=== PATIENT | male | born 1940 | race Caucasian/White ===

== ENCOUNTER 2018-06-16 19:45 | Outpatient (REF) | payer MEDICARE, SELFPAY ==
[2018-06-16 20:09] LABS: HCT 44.5 % (40.0-50.0); HGB 15.2 g/dL (13.5-17.5); Mean Corp. HGB Concentration 34.2 g/dL (32.0-36.0); Mean Corpuscular Hemoglobin 29.6 pg (27.0-33.0); Mean Corpuscular Volume 86.6 fL (80-95); Platelet Count 182 x1000/uL (130-400); RBC 5.14 m/cumm (4.50-6.00); RBC Distribution Width 14.7 % (11.8-14.1); White Blood Cell Count 5.92 k/cumm (4.4-10.8)
== END 2018-06-16 20:05 ==
LOC: NCHCN 19:45
PROVIDERS: PCP Internal Medicine; Visit Provider Nurse Practitioner Family
DX: R05 Cough (principal)
CPT/HCPCS: 85027

== ENCOUNTER 2018-11-09 09:00 | Outpatient (REF) | payer MEDICARE, SELFPAY ==
[2018-11-09 20:04] LABS: Anion Gap 9.3 mmol/L (3-11); BUN 22 mg/dL (7-18); CO2 25.7 mmol/L (21.0-32.0); CREATININE 1.09 mg/dL (0.70-1.30); Calcium 9.4 mg/dL (8.5-10.1); Chloride 107 mmol/L (98-107); Glucose 124 mg/dL (70-100); Potassium 4.5 mmol/L (3.5-5.1); Sodium 142 mmol/L (136-145)
[2018-11-13 11:18] LABS: PSA, Screening 2.1 ng/ml (0-6.5)
== END 2018-11-09 09:20 ==
LOC: NCHCN 09:00
PROVIDERS: PCP Physician Assistant Medical; Visit Provider Physician Assistant Medical
DX: I10 Essential (primary) hypertension (principal); Z12.5 Encounter for screening for malignant neoplasm of prostate
CPT/HCPCS: 80048; 84153

== ENCOUNTER 2019-01-22 10:15 | Outpatient (REF) | payer MEDICARE, SELFPAY ==
[2019-01-22 19:05] LABS: HCT 45.5 % (40.0-50.0); HGB 15.4 g/dL (13.5-17.5); Mean Corp. HGB Concentration 33.8 g/dL (32.0-36.0); Mean Corpuscular Hemoglobin 29.7 pg (27.0-33.0); Mean Corpuscular Volume 87.7 fL (80-95); Mean Platelet Volume 10.7 fL (8.0-11.0); Platelet Count 204 x1000/uL (130-400); RBC 5.19 m/cumm (4.50-6.00); RBC Distribution Width 14.6 % (11.8-14.1)
[2019-01-22 19:32] LABS: ALT 29 U/L (16-63); AST 19 U/L (15-37); Albumin 4.2 g/dL (3.4-5.0); Alkaline Phosphatase 110 U/L (46-116); BUN 15 mg/dL (7-18); Bilirubin, Total 0.8 mg/dL (0.2-1.0); CREATININE 1.14 mg/dL (0.70-1.30); Calcium 9.1 mg/dL (8.5-10.1); Chloride 103 mmol/L (98-107); Glucose 99 mg/dL (70-100); Potassium 4.6 mmol/L (3.5-5.1); Sodium 140 mmol/L (136-145); Total Protein 6.9 g/dL (6.4-8.2)
[2019-01-22 20:28] LABS: Amylase 49 U/L (25-115); Lipase 81 U/L (73-393)
== END 2019-01-22 10:35 ==
LOC: NCHCN 10:15
PROVIDERS: PCP Physician Assistant Medical; Visit Provider Nurse Practitioner Family
DX: R10.84 Generalized abdominal pain (principal)
CPT/HCPCS: 80053; 83690; 85027; 82150

== ENCOUNTER 2019-05-14 08:40 | Outpatient (REF) | payer MEDICARE, SELFPAY ==
[2019-05-14 20:16] LABS: ALT 27 U/L (16-63); AST 15 U/L (15-37); Calculated LDL 111 mg/dL; Cholesterol 173 mg/dL (<200); HDL Cholesterol 44 mg/dL (40-60); Triglyceride 90 mg/dL (<150)
[2019-05-16 10:16] LABS: PSA, Screening 2.4 ng/mL (0.0-6.5)
== END 2019-05-14 09:00 ==
LOC: NCHCN 08:40
PROVIDERS: PCP Physician Assistant Medical; Visit Provider Nurse Practitioner Family
DX: E78.5 Hyperlipidemia, unspecified (principal); N40.0 Benign prostatic hyperplasia without lower urinary tract symptoms; Z12.5 Encounter for screening for malignant neoplasm of prostate
CPT/HCPCS: 80061; 84153; 84450; 84460

== ENCOUNTER 2019-10-11 12:46 | Outpatient (REF) | payer MEDICARE, SELFPAY ==
[2019-10-11 20:28] LABS: CREATININE 1.11 mg/dL (0.70-1.30)
== END 2019-10-11 13:06 ==
LOC: NCHCN 12:46
PROVIDERS: PCP Physician Assistant Medical; Visit Provider Internal Medicine
DX: I10 Essential (primary) hypertension (principal)
CPT/HCPCS: 82565

== ENCOUNTER 2020-03-26 10:22 | Outpatient (REF) | payer MEDICARE, SELFPAY ==
[2020-03-26 20:39] LABS: Anion Gap 5.7 mmol/L (3-11); BUN 15 mg/dL (7-18); CO2 27.3 mmol/L (21.0-32.0); CREATININE 1.07 mg/dL (0.70-1.30); Calcium 8.5 mg/dL (8.5-10.1); Chloride 106 mmol/L (98-107); Glucose 104 mg/dL (74-106); Sodium 139 mmol/L (136-145)
== END 2020-03-26 10:42 ==
LOC: NCHCN 10:22
PROVIDERS: PCP Physician Assistant Medical; Visit Provider Nurse Practitioner Family
DX: I10 Essential (primary) hypertension (principal)
CPT/HCPCS: 80048

== ENCOUNTER 2020-05-12 12:59 | Outpatient (REF) | payer MEDICARE, SELFPAY ==
[2020-05-13 21:46] LABS: COVID-19 RT-PCR Result NEGATIVE (Negative)
== END 2020-05-12 13:19 ==
LOC: NCHCN 12:59
PROVIDERS: PCP Physician Assistant Medical; Visit Provider Internal Medicine
DX: Z20.828 Contact with and (suspected) exposure to other viral communicable diseases (principal)
CPT/HCPCS: U0003

== ENCOUNTER 2020-09-16 21:23 | Outpatient (REF) | payer MEDICARE, SELFPAY ==
[2020-09-16 17:52] LABS: ALT 26 U/L (16-63); AST 15 U/L (15-37); Albumin 3.9 g/dL (3.4-5.0); Alkaline Phosphatase 94 U/L (46-116); Anion Gap 9.7 mmol/L (3-11); BUN 18 mg/dL (7-18); Bilirubin, Total 0.8 mg/dL (0.2-1.0); CO2 26.3 mmol/L (21.0-32.0); CREATININE 1.1 mg/dL (0.70-1.30); Calcium 8.7 mg/dL (8.5-10.1); Calculated LDL 101 mg/dL (<100); Chloride 106 mmol/L (98-107); Cholesterol 171 mg/dL (<200); Glucose 136 mg/dL (74-106); HDL Cholesterol 58 mg/dL (40-60); Potassium 3.8 mmol/L (3.5-5.1); Sodium 142 mmol/L (136-145); Total Protein 6.4 g/dL (6.4-8.2); Triglyceride 64 mg/dL (<150)
== END 2020-09-16 21:24 | disposition home or self-care (01) ==
LOC: NCHCN 21:23
PROVIDERS: PCP Physician Assistant Medical; Visit Provider Nurse Practitioner Family
DX: I10 Essential (primary) hypertension (principal); E78.5 Hyperlipidemia, unspecified
CPT/HCPCS: 80053; 80061

== ENCOUNTER 2020-10-14 16:31 | Outpatient (REF) | payer MEDICARE, SELFPAY ==
[2020-10-16 14:04] LABS: COVID-19 RT-PCR UVMMC Result Negative (Negative)
== END 2020-10-14 16:32 | disposition home or self-care (01) ==
LOC: NCHCN 16:31
PROVIDERS: PCP Physician Assistant Medical; Visit Provider Physician Assistant
DX: Z20.822 Contact with and (suspected) exposure to COVID-19 (principal); J06.9 Acute upper respiratory infection, unspecified
CPT/HCPCS: U0003; U0005

== ENCOUNTER 2020-10-31 09:45 | Outpatient (REF) | payer MEDICARE, SELFPAY ==
--- OUTSIDE RECORDS SUMMARY | 2020-10-31 09:50 | XMS_ITS ---
:1940 Author Care Team Providers Name Role Phone CASSANDRA SAUCEDO MD Primary Care Provider [phone] EBER ROSARIO MD General Surgeon [phone] Allergies Code Code System Name Reaction Severity Status Onset 2670 RxNorm Codeine Nausea ? Active ? Medications Name Status Start Date Stop Date ? ? ciprofloxacin 500 mg tablet Completed ? 12/2018 codeine 10 mg-guaifenesin 100 mg/5 mL oral liquid Active ? Not available Take 10 mL every 4 hours by oral route as needed. Golytely 236 gram-22.74 gram-6.74 gram-5.86 gram oral soluti on Completed 07/10/2015 05/16/2017 1 (one) For Solution For Solution: See comments hydrocodone 5 mg-acetaminophen Completed ? 1 325 mg tablet lisinopril 20 mg tablet Active ? Not avai lable loratadine 10 mg capsule Completed ? 020 Take 1 capsule every day by oral route. lorazepam 1 mg tablet Completed 04/28/2015 05/16/2017 1 (one) Tablet Tablet: as needed meclizine 12.5 mg tablet Completed ? 019 Take 2 tablets 3 times a day by oral route as needed. meloxicam 15 mg tablet Active ? Not avail able metronidazole 500 mg tablet Completed ? 12/2018 Multi-Graham Active ? Not available 1 tablet in the am omeprazole 20 mg capsule,delayed Completed ? 02/05/2020 release omeprazole 40 mg capsule,delayed Active ? Not available release ondansetron 4 mg disintegrating tablet Active ? Not available Place 1 tablet every 6 hours by oral route as needed. oxycodone 5 mg tablet Completed ? 02/07/2019 Percocet 5 mg-325 mg tablet Completed 07/18/201403/02 1-2 Tablet Tablet: every 4-6 hours as needed Proctosol HC 2.5 % rectal cream with applicator Active ? Not available APPLY TO THE AFFECTED AREA(S) BY TOPICAL ROUTE 2 TIMES PER DAY PRN Proscar 5 mg tablet Completed 04/02/2015 05/16/2017 1 (one) Tablet Tablet: daily simvastatin 20 mg tablet Active ? Not kristine ilable sucralfate 1 gram tablet Active ? Not kristine ilable sucralfate 100 mg/mL oral suspension Completed ? 07/24/2020 Take 10 mL 4 times a day by oral route before meals for 30 days . tamsulosin 0.4 mg capsule Completed 04/02/20152017 1 (one) Tablet(s) Tablet(s): at bedtime Tessalon Perles 100 mg capsule Active ? N ot available Take 2 capsules 3 times a day by oral route as needed. Valium 5 mg tablet Completed 02/05/2014 07/25/2014 1-2 Tablet: one hour prior to MRI Problems Name Status Onset Date Source ? Benign Paroxysmal Positional Vertigo Active 02/01/2019 ? Gastroesophageal Reflux Disease Active 02/01/2019 ? Benign Prostatic Hyperplasia Active 02/01/2019 ? Osteoarthritis Active 02/01/2019 ? Gastritis Active 02/26/2019 ? Hyperlipidemia Active ? History Hypertensive Disorder Active ? History Nodule of Lung Active ? ? Cholangitis Active ? History Blood in Urine Active ? History Idiopathic Osteoarthritis Active ? Histor y Shoulder Joint Pain Active ? History Abdominal Pain Active ? History Closed Fracture of Upper End of Fibula Active ? History Closed Fracture of Distal Fibula Active ? History Pain in Right Knee Active ? History Hemorrhage of Rectum and Anus Active ? Hi story Closed Fracture of Distal Left Fibula Active ? History Closed Fracture of Upper End of Left Active ? History Fibula Lower Urinary Tract Symptoms Due to Active ? History Benign Prostatic Hypertrophy Procedure by Method Unknown ? History Impingement Syndrome of Left Shoulder Active ? History Region Procedures Date Name Performed by ? 02/13/2019 EGD/Endoscopy Information not avai lable Notes: Hiatal hernia, esophagitis, ga stric polyp, gastritis. 07/01/09 WNL 09/13/2018 Carpal Tunnel Surgery Information not av ailable Notes: L CTR 05/20/2017 Open Reduction of Fracture with Internal Fixation Information not available Notes: left fibula 08/14/2015 Colonoscopy Information not avai lable Notes: sigmoid diverticulosis, 07/01/09 min diverticular changes 08/06/2014 Cholecystectomy Information not avai lable 07/18/2014 Arthroscopy of Shoulder Information not available Notes: left ? Arthroscopy of Knee Information not avai lable Notes: bilateral ? Orthopedic Surgery Information not avai lable Notes: right shoulder, 2006; CTR, 200 8 Results Lab Results Date Name Specimen Result Interpretation Description Value Range Status Address ? 10/16/2020 CBC W/ BLD ? Wbc 9.1 10*3/uL 5.0-10.0 Final [place] Auto Diff 10*3/uL [facility] L ab (Internal) : [address] ? ? BLD ? Rbc 5.38 10*6/uL 4.60-6.00 Final N orth 10*6/uL [facility] L ab (Internal) : [address] ? ? BLD ? Hgb 16.2 g/dL 14.0-18.0 Final Nort h g/dL [facility] L ab (Internal) : [address] ? ? BLD ? Hct 47.9 % 41.0-51.0 Final [facility] L ab (Internal) : [address] ? ? BLD ? Mcv 89.0 fL 80.0-96.0 Final [facility] L ab (Internal) : [address] ? ? BLD ? Mch 30.1 pg 26.0-32.0 Final [place] pg [facility] L ab (Internal) : [address] ? ? BLD ? Mchc 33.8 g/dL 31.0-35.0 Final Nort h g/dL [facility] L ab (Internal) : [address] ? ? BLD ? Rdw 13.9 % 11.5-14.5 Final [facility] L ab (Internal) : [address] ? ? BLD ? Plt 148 10*3/uL 130-450 Final Nort h 10*3/uL [facility] L ab (Internal) : [address] 10/16/2020 CMP, Serum S High g/r 124 mg/dL 74-106 Final [place] or Plasma mg/dL [facility] L ab (Internal) : [address] ? ? S ? Bun 13 mg/dL 9-20 Final [facility] mg/dL [facility] : [address] ? ? S ? Crea 0.80 mg/dL 0.66-1.25 Final [place] [facility] mg/dL [facility] (Internal) : [address] ? ? S ? Ca 9.4 mg/dL 8.4-10.2 Final [place] mg/dL [facility] (Internal) : [address] ? ? S ? Na 138 mmol/L 137-145 Final [place] mmol/L [facility] L ab (Internal) : [address] ? ? S ? K 3.7 mmol/L 3.5-5.1 Final [place] mmol/L [facility] L ab (Internal) : [address] ? ? S ? Cl 104 mmol/L 98-107 Final [place] mmol/L [facility] L ab (Internal) : [address] ? ? S ? Tco2 24.0 mmol/L 22.0-30.0 Final No rth mmol/L [facility] L ab (Internal) : [address] ? ? S ? Tp 6.7 g/dL 6.3-8.2 Final [place] g/dL [facility] (Internal) : [address] ? ? S ? Alb 4.2 g/dL 3.5-5.0 Final [place] g/dL [facility] L ab (Internal) : [address] ? ? S ? Tbil 0.9 mg/dL 0.2-1.3 Final [place] mg/dL [facility] L ab (Internal) : [address] ? ? S ? Alp 103 U/L 38-126 Final [place] U/L [facility] L ab (Internal) : [address] ? ? S Low Alt 20 U/L 21-72 U/L Final [place] (Sgpt) [facility] L ab (Internal) : [address] ? ? S ? Ast 25 U/L 17-59 U/L Final [place] (Sgot) [facility] L ab (Internal) : [address] 10/16/2020 Differenti BLD High Polys 83 % 40-75 % Final N orth al, Country Manual, Hospital Lab Blood (Internal) : [address] ? ? BLD ? Bands 0 % 0-5 % Final [facility] L ab (Internal) : [address] ? ? BLD Low Lymphs 8 % 20-50 % Final [facility] L ab (Internal) : [address] ? ? BLD ? Wy[place] 7 % 2-10 % Final [facility] L ab (Internal) : [address] ? ? BLD ? Eos 1 % 0-6 % Final [facility] L ab (Internal) : [address] ? ? BLD ? Baso 1 % 0-1 % Final [facility] L ab (Internal) : [address] ? ? BLD ? Atyp 0 % ? Final [facility] L ab (Internal) : [address] ? ? BLD ? Plts, adequate adequate [facility] [place] [facility] [address] ? ? BLD ? RBC normal normal Final [place] Morpholog Replaced by [facility] L ab (Internal) : [address] 10/16/2020 Neutrophil BLD ? Anc-manu 7.52 10*3/uL ? Final [place] Count, al [facility] Lab (Anc), (Internal) : Blood [address] 10/16/2020 Nlr-manual BLD High Nlr - 10.38 0.00-3.20 Final [facility] Hospital L ab (Internal) : [address] 10/16/2020 Respirator FLUID ? Final microbiology ? Fin al [place] y Virus results [facility] L ab (Internal) : [address] 02/13/2019 Urease, TISS - Final microbiology ? Final [place] Qualitativ results Count ry e, Tissue Hospita l Lab (Internal) : [address] 02/13/2019 Pathology TISS - Report results below ? Fi nal [facility] L ab (Internal) : [address] 05/20/2017 Venipunctu BLD ? Venpn* ? ? Final N orth re [facility] L ab (Internal) : [address] 05/20/2017 RBC BLD ? Aniso occasional ? Final No rth Morphology Countr y , Blood Hospital Lab (Internal) : [address] 05/20/2017 CBC W/ BLD ? Wbc 7.9 10*3/uL 5.0-10.0 Final [place] Auto Diff 10*3/uL [facility] Hospital L ab (Internal) : [address] ? ? BLD ? Rbc 5.52 10*6/uL 4.60-6.00 Final N orth 10*6/uL [facility] L ab (Internal) : [address] ? ? BLD ? Hgb 15.8 g/dL 14.0-18.0 Final Nort h g/dL [facility] L ab (Internal) : [address] ? ? BLD ? Hct 47.4 % 41.0-51.0 Final [facility] L ab (Internal) : [address] ? ? BLD ? Mcv 85.9 fL 80.0-96.0 Final [facility] L ab (Internal) : [address] ? ? BLD ? Mch 28.6 pg 26.0-32.0 Final [facility] L ab (Internal) : [address] ? ? BLD ? Mchc 33.3 g/dL 31.0-35.0 Final Nort h g/dL [facility] L ab (Internal) : [address] ? ? BLD High Rdw 15.1 % 11.5-14.5 Final [facility] L ab (Internal) : [address] ? ? BLD ? Plt 196 10*3/uL 130-450 Final Nort h 10*3/uL [facility] L ab (Internal) : [address] ? ? BLD ? Anc 5.25 10*3/uL ? Final Nort h [facility] L ab (Internal) : [address] ? ? BLD ? Neutro 66.5 % 40.0-75.0 Final [facility] L ab (Internal) : [address] ? ? BLD Low Lymph 18.3 % 20.0-50.0 Final [facility] L ab (Internal) : [address] ? ? BLD ? [place] 9.6 % 2.0-10.0 Final [facility] Hospital L ab (Internal) : [address] ? ? BLD ? Eos 4.6 % 1.0-6.0 % Final [facility] L ab (Internal) : [address] ? ? BLD ? Baso 0.6 % 0.0-1.0 % Final [facility] L ab (Internal) : [address] ? ? BLD ? Ig 0.4 % 0.0-0.9 % Final [facility] L ab (Internal) : [address] 08/16/2016 Venipunctu BLD ? Venpn* ? ? Final N orth re [facility] L ab (Internal) : [address] 08/16/2016 BMP, Serum PLASMA High g/r 108 mg/dL 74-106 Final [place] or Plasma mg/dL [facility] (Internal) : [address] ? ? PLASMA ? Bun 14 mg/dL 9-20 Final [place] mg/dL [facility] L ab (Internal) : [address] ? ? PLASMA ? Crea 1.10 mg/dL 0.66-1.25 Final [place] [facility] mg/dL [facility] (Internal) : [address] ? ? PLASMA ? Ca 8.8 mg/dL 8.4-10.2 Final [place] mg/dL [facility] L ab (Internal) : [address] ? ? PLASMA ? Na 141 mmol/L 137-145 Final [place] mmol/L [facility] L ab (Internal) : [address] ? ? PLASMA ? K 4.1 mmol/L 3.5-5.1 Final [place] mmol/L [facility] L ab (Internal) : [address] ? ? PLASMA ? Cl 106 mmol/L 98-107 Final [place] mmol/L [facility] L ab (Internal) : [address] ? ? PLASMA ? Tco2 24.0 mmol/L 22.0-30.0 Final No rth mmol/L [facility] (Internal) : [address] 08/16/2016 CBC W/ BLD ? Wbc 5.9 10*3/uL 5.0-10.0 Final [place] Auto Diff 10*3/uL [facility] L ab (Internal) : [address] ? ? BLD Low Rbc 4.24 10*6/uL 4.60-6.00 Final N orth 10*6/uL [facility] (Internal) : [address] ? ? BLD Low Hgb 12.7 g/dL 14.0-18.0 Final Nort h g/dL [facility] (Internal) : [address] ? ? BLD Low Hct 37.0 % 41.0-51.0 Final North % [facility] L ab (Internal) : [address] ? ? BLD ? Mcv 87.3 fL 80.0-96.0 Final [facility] L ab (Internal) : [address] ? ? BLD ? Mch 30.0 pg 26.0-32.0 Final [place] pg [facility] L ab (Internal) : [address] ? ? BLD ? Mchc 34.3 g/dL 31.0-35.0 Final Nort h g/dL [facility] (Internal) : [address] ? ? BLD ? Rdw 14.1 % 11.5-14.5 Final North % [facility] L ab (Internal) : [address] ? ? BLD ? Plt 145 10*3/uL 130-450 Final Nort h 10*3/uL [facility] (Internal) : [address] ? ? BLD ? Anc 3.63 10*3/uL ? Final Nort [facility] (Internal) : [address] ? ? BLD ? Neutro 61.7 % 40.0-75.0 Final North [facility] L ab (Internal) : [address] ? ? BLD Low Lymph 16.7 % 20.0-50.0 Final [facility] % [facility] (Internal[facility] : [address] ? ? BLD High [place] 11.9 % 2.0-10.0 Final [facility] L ab (Internal) : [address] ? ? BLD High Eos 9.0 % 1.0-6.0 % Final [facility] L ab (Internal) : [address] ? ? BLD ? Baso 0.5 % 0.0-1.0 % Final [facility] L ab (Internal) : [address] ? ? BLD ? Ig 0.2 % 0.0-0.9 % Final [facility] L ab (Internal) : [address] 08/15/2016 Venipunctu BLD ? Venpn* ? ? Final N [facility] re [facility] L ab (Internal) : [address] 08/15/2016 CBC W/ BLD ? Wbc 8.9 10*3/uL 5.0-10.0 Final [place] Auto Diff 10*3/uL [facility] L ab (Internal) : [address] ? ? BLD Low Rbc 4.11 10*6/uL 4.60-6.00 Final N orth 10*6/uL [facility] L ab (Internal) : [address] ? ? BLD Low Hgb 12.3 g/dL 14.0-18.0 Final Nort h g/dL [facility] L ab (Internal) : [address] ? ? BLD Low Hct 36.0 % 41.0-51.0 Final [facility] Hospital L ab (Internal) : [address] ? ? BLD ? Mcv 87.6 fL 80.0-96.0 Final [facility] L ab (Internal) : [address] ? ? BLD ? Mch 29.9 pg 26.0-32.0 Final [facility] L ab (Internal) : [address] ? ? BLD ? Mchc 34.2 g/dL 31.0-35.0 Final Nort h g/dL [facility] L ab (Internal) : [address] ? ? BLD ? Rdw 14.2 % 11.5-14.5 Final [facility] Hospital L ab (Internal) : [address] ? ? BLD ? Plt 149 10*3/uL 130-450 Final Nort h 10*3/uL [facility] L ab (Internal) : [address] ? ? BLD ? Anc 6.76 10*3/uL ? Final Nort h [facility] L ab (Internal) : [address] ? ? BLD High Neutro 76.2 % 40.0-75.0 Final [facility] L ab (Internal) : [address] ? ? BLD Low Lymph 10.3 % 20.0-50.0 Final [facility] Hospital L ab (Internal) : [address] ? ? BLD ? [place] 9.0 % 2.0-10.0 Final [facility] Hospital L ab (Internal) : [address] ? ? BLD ? Eos 3.7 % 1.0-6.0 % Final [facility] L ab (Internal) : [address] ? ? BLD ? Baso 0.5 % 0.0-1.0 % Final [facility] L ab (Internal) : [address] ? ? BLD ? Ig 0.3 % 0.0-0.9 % Final [facility] L ab (Internal) : [address] 08/15/2016 BMP, Serum PLASMA High g/r 107 mg/dL 74-106 Final North or Plasma mg/dL [facility] L ab (Internal) : [address] ? ? PLASMA ? Bun 14 mg/dL 9-20 Final [place] mg/dL [facility] L ab (Internal) : [address] ? ? PLASMA ? Crea 1.00 mg/dL 0.66-1.25 Final Nor th mg/dL [facility] L ab (Internal) : [address] ? ? PLASMA Low Ca 8.2 mg/dL 8.4-10.2 Final [place] mg/dL [facility] L ab (Internal) : [address] ? ? PLASMA Low Na 136 mmol/L 137-145 Final [place] mmol/L [facility] L ab (Internal) : [address] ? ? PLASMA ? K 3.8 mmol/L 3.5-5.1 Final [place] mmol/L [facility] L ab (Internal) : [address] ? ? PLASMA ? Cl 106 mmol/L 98-107 Final [place] mmol/L [facility] L ab (Internal) : [address] ? ? PLASMA Low Tco2 21.0 mmol/L 22.0-30.0 Final No rth mmol/L [facility] L ab (Internal) : [address] 08/14/2016 Venipunctu BLD ? Venpn* ? ? Final N orth re [facility] L ab (Internal) : [address] 08/14/2016 Lactic S ? La 0.8 mmol/L 0.7-2.1 Final N orth Acid, mmol/L [facility] Blood Hospital L ab (Internal) : [address] 08/14/2016 Culture, BLD ? Final microbiology ? Final [place] Blood results [facility] L ab (Internal) : [address] 08/14/2016 Culture, UR ? Final microbiology ? Final [place] Urine results [facility] L ab (Internal) : [address] 08/14/2016 sensitivit MISC ? Sens* ? ? Final No rth ies[I] [facility] L ab (Internal) : [address] 08/14/2016 Urinalysis UR ABNORMA UA-WBC 50-100 [hpf] 0-3 [hpf ] Final [facility]Internal[facility] : [address] ? ? UR ABNORMA UA-RBC 50-100 [hpf] 0-2 [hpf] Final [facility] L ab (Internal) : [address] ? ? UR ABNORMA UA-bacte many [hpf] none seen Final [facility] sunday [hpf] [facility] ab (Internal) : [address] ? ? UR ? UA-epith rare [hpf] none seen Final [place] elial [hpf] [facility] ab (Internal) : [address] ? ? UR ABNORMA UA-mucus rare [hpf] none seen Final [facility] [hpf] [facility] ab (Internal) : [address] 08/14/2016 Urinalysis UR ? UA-color pale yellow pale F inal [place] , yellow [facility] Dipstick, Hospita l Lab Reflex (Internal) : Micro [address] ? ? UR ABNORMA UA-appea hazy clear Final [facility] ab (Internal) : [address] ? ? UR ? UA-spec 1.020 1.003-1.0 Final [place] Grav 35 [facility] ab (Internal) : [address] ? ? UR ? UA-pH 5.0 [pH] 4.6-8.0 Final [place] [pH] [facility] ab (Internal) : [address] ? ? UR ABNORMA UA-leuk moderate negative Final [facility] ab (Internal) : [address] ? ? UR ? UA-nitri negative negative Final [facility] ab (Internal) : [address] ? ? UR ABNORMA UA-prot trace negative Final [facility] ab (Internal) : [address] ? ? UR ? UA-gluc negative negative Final [facility] ab (Internal) : [address] ? ? UR ? UA-keton negative negative Final [facility] ab (Internal) : [address] ? ? UR ? UA-urobi normal normal Final [facility] ab (Internal) : [address] ? ? UR ? UA-bili negative negative Final [facility] ab (Internal) : [address] ? ? UR ABNORMA UA-blood large negative Final [facility] ab (Internal) : [address] 08/14/2016 Culture, BLD ? Final microbiology ? Final [place] Blood results [facility] ab (Internal) : [address] 08/14/2016 Neutrophil BLD ? Anc-manu 10.12 10*3/uL ? Final [place] Count, al [facility] Lab (Anc), (Internal) : Blood [address] 08/14/2016 Differenti BLD High Polys 86 % 40-75 % Final N orth al, [facility] Manual, Hospital Lab Blood (Internal) : [address] ? ? BLD ? Bands 2 % 0-5 % Final [facility] L ab (Internal) : [address] ? ? BLD Low Lymphs 5 % 20-50 % Final [facility] L ab (Internal) : [address] ? ? BLD ? Wy[place] 6 % 2-10 % Final [facility] L ab (Internal) : [address] ? ? BLD ? Eos 1 % 0-6 % Final [facility] L ab (Internal) : [address] ? ? BLD ? Baso 0 % 0-1 % Final [facility] L ab (Internal) : [address] ? ? BLD ? Atyp 0 % ? Final [facility] L ab (Internal) : [address] ? ? BLD ? Plts, adequate adequate Final [facility] L ab (Internal) : [address] ? ? BLD ? RBC normal normal Final [place] Morpholog Replaced by [facility] L ab (Internal) : [address] 08/14/2016 BMP, Serum S High g/r 113 mg/dL 74-106 Final [place] or Plasma mg/dL [facility] Hospital L ab (Internal) : [address] ? ? S ? Bun 20 mg/dL 9-20 Final [place] mg/dL [facility] Hospital L ab (Internal) : [address] ? ? S ? Crea 1.00 mg/dL 0.66-1.25 Final Nor th mg/dL [facility] Hospital L ab (Internal) : [address] ? ? S ? Ca 9.6 mg/dL 8.4-10.2 Final [place] mg/dL [facility] Hospital L ab (Internal) : [address] ? ? S ? Na 137 mmol/L 137-145 Final [place] mmol/L [facility] Hospital L ab (Internal) : [address] ? ? S ? K 4.2 mmol/L 3.5-5.1 Final [place] mmol/L [facility] Hospital L ab (Internal) : [address] ? ? S ? Cl 102 mmol/L 98-107 Final [place] mmol/L [facility] L ab (Internal) : [address] ? ? S ? Tco2 22.0 mmol/L 22.0-30.0 Final No rth mmol/L [facility] Hospital L ab (Internal) : [address] 08/14/2016 CBC W/ BLD High Wbc 11.5 10*3/uL 5.0-10.0 Final [place] Auto Diff 10*3/uL [facility] L ab (Internal) : [address] ? ? BLD ? Rbc 4.89 10*6/uL 4.60-6.00 Final N orth 10*6/uL [facility] Hospital L ab (Internal) : [address] ? ? BLD ? Hgb 14.6 g/dL 14.0-18.0 Final Nort h g/dL [facility] Hospital L ab (Internal) : [address] ? ? BLD ? Hct 42.2 % 41.0-51.0 Final [facility] L ab (Internal) : [address] ? ? BLD ? Mcv 86.3 fL 80.0-96.0 Final [facility] Hospital L ab (Internal) : [address] ? ? BLD ? Mch 29.9 pg 26.0-32.0 Final [facility] L ab (Internal) : [address] ? ? BLD ? Mchc 34.6 g/dL 31.0-35.0 Final Nort h g/dL [facility] Hospital L ab (Internal) : [address] [address] ? ? BLD ? Rdw 14.0 % 11.5-14.5 Final [facility] ab (Internal) : [address] ? ? BLD ? Plt 172 10*3/uL 130-450 Final Nort h 10*3/uL [facility] (Internal) : [address] 08/14/2016 Influenza NASAL ? Final microbiology ? [place] [facility] [place] (A+B) Ag, results Countr y Qual, Hospital L ab Rapid, (Internal) : Nose [address] 07/14/2016 Prothrombi BLD ? Pt 10.4 S 9.1-11.7 Final [place] n Time S [facility] (Internal) : [address] ? ? BLD ? Inr 1.0 ? Final [facility] (Internal) : [address] 07/14/2016 CMP, Serum S High g/r 113 mg/dL 74-106 Final [place] or Plasma mg/dL [facility] : [address] ? ? S ? Bun 18 mg/dL 9-20 Final [place] mg/dL [facility] : [address] ? ? S ? Crea 1.20 mg/dL 0.66-1.25 Final [place] [facility] mg/dL [facility] ([facility]) : [address] ? ? S ? Ca 8.9 mg/dL 8.4-10.2 Final [place] mg/dL [facility] ([facility]) : [address] ? ? S ? Na 139 mmol/L 137-145 Final [place] mmol/L [facility] ([facility]) : [address] ? ? S ? K 3.6 mmol/L 3.5-5.1 Final [place] mmol/L [facility] ([facility]) : [address] ? ? S ? Cl 104 mmol/L 98-107 Final [place] mmol/L [facility] ([facility]) : [address] ? ? S ? Tco2 24.0 mmol/L 22.0-30.0 Final No rth mmol/L [facility] (Internal) : [address] ? ? S ? Tp 7.4 g/dL 6.3-8.2 Final [place] g/dL [facility] ([facility]) : [address] ? ? S ? Alb 4.5 g/dL 3.5-5.0 Final [place] g/dL [facility] (Internal) : [address] ? ? S ? Tbil 0.5 mg/dL 0.2-1.3 Final [place] mg/dL [facility] (Internal) : [address] ? ? S ? Alp 120 U/L 38-126 Final [place] U/L [facility] (Internal) : [address] ? ? S ? Alt 38 U/L 21-72 U/L Final [place] (pt) [facility] (Internal) : [address] ? ? S ? Ast 36 U/L 17-59 U/L Final [place] (Sgot) [facility] (Internal) : [address] t 07/14/2016 CBC W/ BLD ? Wbc 6.3 10*3/uL 5.0-10.0 Final [place] Auto Diff 10*3/uL [facility] (Internal) : [address] ? ? BLD ? Rbc 5.39 10*6/uL 4.60-6.00 Final N orth 10*6/uL [facility] (Internal) : [address] ? ? BLD ? Hgb 16.7 g/dL 14.0-18.0 Final Nort h g/dL [facility] L ab (Internal) : [address] ? ? BLD ? Hct 47.2 % 41.0-51.0 Final [facility] L ab (Internal) : [address] ? ? BLD ? Mcv 87.6 fL 80.0-96.0 Final [facility] L [facility] (Internal) : [address] ? ? BLD ? Mch 31.0 pg 26.0-32.0 Final [place] pg [facility] (Internal) : [address] ? ? BLD High Mchc 35.4 g/dL 31.0-35.0 Final Nort h g/dL [facility] (Internal) : [address] ? ? BLD High Rdw 14.6 % 11.5-14.5 Final [facility] ab (Internal) : [address] [place] ? ? BLD ? Plt 207 10*3/uL 130-450 Final Nort h 10*3/uL [facility] L ab (Internal) : [address], [place] ? ? BLD ? Anc 3.29 10*3/uL ? Final Nort h [facility] ab (Internal) : [address] ? ? BLD ? Neutro 52.7 % 40.0-75.0 Final [facility] ab (Internal) : [address], [place] ? ? BLD ? Lymph 27.0 % 20.0-50.0 Final [facility] L ab (Internal) : [address], [place] ? ? BLD ? [place] 9.4 % 2.0-10.0 Final [facility] ab (Internal) : [address] [place] ? ? BLD High Eos 9.9 % 1.0-6.0 % Final [facility] ab (Internal) : [address] [place] ? ? BLD ? Baso 0.8 % 0.0-1.0 % Final [facility] ab (Internal) : [address], [place] ? ? BLD ? Ig 0.2 % 0.0-0.9 % Final [facility] ab (Internal) : [address] 07/14/2016 Urinalysis UR ? UA-WBC 0-3 [hpf] 0-3 [hpf] Fi [facility] Lab c (Internal) : [address] [place] ? ? UR ABNORMA UA-RBC >100 [hpf] 0-2 [hpf] Final N orth L [facility] L ab (Internal) : [address] ? ? UR ? UA-bacte rare [hpf] none seen Final [place] sunday [hpf] [facility] ab (Internal) : [address] [place] ? ? UR ? UA-epith rare [hpf] none seen Final [place] elial [hpf] [facility] ab (Internal) : [address] ? ? UR ? UA-mucus none seen none seen Final N orth [hpf] [hpf] [facility] L ab (Internal) : [address] 07/14/2016 Urinalysis UR ABNORMA UA-color red pale Final [place] , L yellow [facility] Dipstick, Hospita l Lab Reflex (Internal) : Micro [address] ? ? UR ABNORMA UA-appea cloudy clear Final [place] L r [facility] L ab (Internal) : [address] Past Encounters 07/24/2020 Diastasis Recti; Gastro-esophageal Reflu x Disease with Esophagitis Eber Rosario MD: [address] [place] [phone], Ph. 05/07/2020 Antelmo Munguia MD: [address] [place] [phone], Ph. 08/29/2019 DARBY SnowdenC: [address] [place] [phone], Ph. 06/06/2019 Antelmo Munguia MD: [address] [place] [phone], Ph. 05/30/2019 DARBY SnowdenC: [address] [place] [phone], Ph. 05/23/2019 Dione Cooper PA-C: [address] [place] [phone], Ph. Social History Tobacco Smoking Status Former Smoker Vaccine List None recorded. Plan of Care Reminders Provider Appointments None ? ? recorded. Lab None ? ? recorded. Referral None ? ? recorded. Procedures None ? ? recorded. Surgeries None ? ? recorded. Imaging None ? ? recorded. Vitals 07/24/2020 01:45PM Office 15 Height Weight BMI Blood Pressure 182.88 cm 94.03 kg 28.1 kg/m2 128/76 mm[Hg] 05/07/2020 09:30AM Consult 30 Height Weight BMI 182.88 cm 96.03 kg 28.7 kg/m2 08/29/2019 01:45PM Any 30 Height Weight BMI Blood Pressure 182.88 cm 97.52 kg 29.2 kg/m2 128/74 mm[Hg] 05/30/2019 09:15AM Injection 15 Height Weight BMI Blood Pressure 182.88 cm 05/23/2019 09:15AM Injection 15 Height Weight BMI Blood Pressure 182.88 cm 02/07/2019 08:30AM Office 15 Height Weight BMI Blood Pressure 182.88 cm 97.07 kg 29 kg/m2 136/82 mm[Hg] 08/30/2018 02:00PM Follow Up 15 Weight Blood Pressure 99.84 kg 138/88 mm[Hg] 06/27/2017 Height Weight Blood Pressure 182.88 cm 104.19 kg 162/92 mm[Hg] 05/16/2017 Height Weight Blood Pressure 182.88 cm 95.25 kg 152/78 mm[Hg] 08/08/2015 Height Weight Blood Pressure 182.88 cm 93.89 kg 146/84 mm[Hg] 04/02/2015 Weight 93.89 kg 03/19/2015 Weight Blood Pressure 93.89 kg 146/70 mm[Hg] 12/20/2014 Height Weight Blood Pressure 182.88 cm 90.72 kg 137/72 mm[Hg] 09/27/2014 Height Weight Blood Pressure 182.88 cm 90.72 kg 138/78 mm[Hg] 09/17/2014 Height Weight Blood Pressure 182.88 cm 92.99 kg 136/82 mm[Hg] 08/20/2014 Height Weight Blood Pressure 182.88 cm 88.45 kg 152/82 mm[Hg] 02/05/2014 Height Weight Blood Pressure 182.88 cm 88.45 kg 146/88 mm[Hg] 01/15/2014 Height Weight Blood Pressure 182.88 cm 88.45 kg 118/78 mm[Hg] 09/18/2013 Height Weight Blood Pressure 182.88 cm 88.45 kg 110/80 mm[Hg] 09/11/2013 Height Weight Blood Pressure 182.88 cm 88.45 kg 106/80 mm[Hg] 09/04/2013 Height Weight Blood Pressure 182.88 cm 88.45 kg 120/84 mm[Hg] 01/24/2013 Height Weight Blood Pressure 182.88 cm 88.45 kg 120/84 mm[Hg] 01/17/2013 Height Weight Blood Pressure 182.88 cm 88.45 kg 124/84 mm[Hg] 12/22/2012 Height Weight Blood Pressure 182.88 cm 88.45 kg 120/78 mm[Hg] 06/28/2012 Height Weight Blood Pressure 182.88 cm 88.45 kg 124/67 mm[Hg] 06/21/2012 Height Weight Blood Pressure 182.88 cm 88.45 kg 122/68 mm[Hg] 06/14/2012 Height Weight Blood Pressure 182.88 cm 88.45 kg 124/64 mm[Hg] 03/22/2012 Height Weight Blood Pressure 182.88 cm 88.45 kg 136/67 mm[Hg] 03/15/2012 Height Weight Blood Pressure 182.88 cm 88.45 kg 138/64 mm[Hg] 03/08/2012 Height Weight Blood Pressure 182.88 cm 88.45 kg 121/69 mm[Hg] 01/21/2012 Height Weight 182.88 cm 88.45 kg 05/06/2011 Height Weight Blood Pressure 182.88 cm 90.72 kg 110/68 mm[Hg] 10/06/2010 Height Weight 182.88 cm 90.72 kg 09/08/2010 Height Weight 182.88 cm 90.72 kg 07/09/2010 Height Weight 182.88 cm 90.72 kg 04/01/2010 Height Weight 182.88 cm 90.72 kg 03/24/2009 Height Weight 182.88 cm 90.72 kg 07/23/2008 Height Weight 182.88 cm 90.72 kg 07/16/2008 Height Weight 182.88 cm 90.72 kg 07/09/2008 Height Weight 182.88 cm 90.72 kg 04/19/2008 Height Weight 182.88 cm 90.72 kg
[2020-11-04 17:37] LABS: PSA, Diagnostic 2.7 ng/mL (0.0-6.5)
== END 2020-10-31 09:46 | disposition home or self-care (01) ==
LOC: NCHCN 09:45
PROVIDERS: PCP Physician Assistant Medical; Visit Provider Physician Assistant
DX: R35.0 Frequency of micturition (principal)
CPT/HCPCS: 84153

== ENCOUNTER 2021-06-22 19:25 | Outpatient (REF) | payer MEDICARE, SELFPAY ==
[2021-06-24 12:41] LABS: COVID-19 RT-PCR UVMMC Result Negative (Negative)
== END 2021-06-22 19:26 | disposition home or self-care (01) ==
LOC: NCHCN 19:25
PROVIDERS: PCP Physician Assistant Medical; Visit Provider Nurse Practitioner Family
DX: Z20.822 Contact with and (suspected) exposure to COVID-19 (principal); R05.8 Other specified cough
CPT/HCPCS: U0003

== ENCOUNTER 2021-12-08 15:25 | Outpatient (REF) | payer MEDICARE, SELFPAY ==
[2021-12-08 19:09] LABS: Anion Gap 10.9 mmol/L (3-11); BUN 19 mg/dL (7-18); CO2 24.1 mmol/L (21.0-32.0); Calcium 8.9 mg/dL (8.5-10.1); Chloride 106 mmol/L (98-107); Glucose 140 mg/dL (74-106); Sodium 141 mmol/L (136-145)
[2021-12-09 20:47] LABS: PSA, Screening 2.5 ng/mL (<=6.5)
== END 2021-12-08 15:26 | disposition home or self-care (01) ==
LOC: NCHCN 15:25
PROVIDERS: PCP Physician Assistant Medical; Visit Provider Physician Assistant
DX: Z80.42 Family history of malignant neoplasm of prostate (principal); I10 Essential (primary) hypertension; Z12.5 Encounter for screening for malignant neoplasm of prostate
CPT/HCPCS: 80048; 84153

== ENCOUNTER 2022-05-19 21:14 | Outpatient (REF) | payer MEDICARE, SELFPAY ==
[2022-05-19 21:49] LABS: Bacteria Rare HPF (Negative); C & S Indicated? C&S Done As Ordered; Crystals Negative HPF (Negative); Epithelial Cells Rare HPF (Negative); Mucus Trace (Negative); WBC 0-2 HPF (0-5)
== END 2022-05-19 21:15 | disposition home or self-care (01) ==
LOC: NCHCN 21:14
PROVIDERS: PCP Physician Assistant Medical; Visit Provider Physician Assistant
DX: R31.9 Hematuria, unspecified (principal)
CPT/HCPCS: 81015; 87086

== ENCOUNTER 2022-05-28 15:29 | Outpatient (REF) | payer MEDICARE, SELFPAY ==
[2022-05-31 10:08] LABS: PSA, Diagnostic 3.1 ng/mL (<=6.5)
== END 2022-05-28 15:30 | disposition home or self-care (01) ==
LOC: NCHCN 15:29
PROVIDERS: PCP Physician Assistant Medical; Visit Provider Physician Assistant
DX: N40.0 Benign prostatic hyperplasia without lower urinary tract symptoms (principal); R31.9 Hematuria, unspecified; Z80.42 Family history of malignant neoplasm of prostate
CPT/HCPCS: 84153

== ENCOUNTER 2022-12-10 12:22 | Outpatient (REF) | payer MEDICARE, SELFPAY ==
[2022-12-10 18:59] LABS: HCT 44.5 % (40.0-50.0); HGB 15.5 g/dL (13.5-17.5); MCH 29.8 pg (27.0-33.0); MCHC 34.8 % (32.0-36.0); MCV 86 fL (80-95); MPV 10.7 fL (8.0-11.0); Platelet Count 138 10^3/uL (130-400); RDW 14.5 % (11.8-14.1); WBC 4.84 10^3/uL (4.4-10.8)
[2022-12-10 19:06] LABS: ALT 23 U/L (16-63); AST 22 U/L (15-37); Alkaline Phosphatase 132 U/L (46-116); Anion Gap 10.5 mmol/L (3-11); BUN 18 mg/dL (7-18); Bilirubin, Total 0.7 mg/dL (0.2-1.0); CO2 24.5 mmol/L (21.0-32.0); CREATININE 1.1 mg/dL (0.70-1.30); Calcium 8.9 mg/dL (8.5-10.1); Chloride 104 mmol/L (98-107); Estimated GFR 67.86 (mL/min/1.73m2); Glucose 112 mg/dL (74-106); Potassium 4.2 mmol/L (3.5-5.1); Sodium 139 mmol/L (136-145); Total Protein 6.9 g/dL (6.4-8.2)
[2022-12-13 09:28] LABS: PSA, Screening 2.5 ng/mL (<=6.5)
== END 2022-12-10 12:23 | disposition home or self-care (01) ==
LOC: NCHCN 12:22
PROVIDERS: PCP Physician Assistant Medical; Visit Provider Physician Assistant
DX: I10 Essential (primary) hypertension (principal); R73.03 Prediabetes; K76.0 Fatty (change of) liver, not elsewhere classified; Z12.5 Encounter for screening for malignant neoplasm of prostate; Z80.42 Family history of malignant neoplasm of prostate; N40.0 Benign prostatic hyperplasia without lower urinary tract symptoms
CPT/HCPCS: 80053; 84153; 85027

== ENCOUNTER 2024-01-24 13:40 | Outpatient (REF) | payer MEDICARE, SELFPAY ==
[2024-01-24 19:21] LABS: Abs Immature Grans 0.01 10^3/uL (0.0-0.06); Absolute Basophil Count 0.03 10^3/uL (0.0-0.2); Absolute Eosinophil Count 0.25 10^3/uL (0.0-0.7); Absolute Lymphocyte Count 1.07 10^3/uL (1.2-3.4); Absolute Monocyte Count 0.46 10^3/uL (0.1-0.8); Absolute Neutrophil Count 3.33 10^3/uL (1.2-6.7); Basophils % 0.6 %; Eosinophils % 4.9 %; HCT 42.7 % (40.0-50.0); HGB 14.7 g/dL (13.5-17.5); Immature Grans % 0.2 %; Lymphocytes % 20.8 %; MCH 29.9 pg (27.0-33.0); MCHC 34.4 % (32.0-36.0); MCV 87 fL (80-95); Monocytes % 8.9 %; Neutrophils % 64.6 %; Platelet Count 196 10^3/uL (130-400); RBC 4.92 10^6/uL (4.36-5.78); RDW 14.1 % (11.8-14.1); RDW-SD 44.6 fL; WBC 5.15 10^3/uL (4.4-10.8)
[2024-01-24 19:36] LABS: ALT 23 U/L (16-63); AST 20 U/L (15-37); Albumin 3.9 g/dL (3.4-5.0); Alkaline Phosphatase 125 U/L (46-116); Anion Gap 9.5 mmol/L (3-11); BUN 23 mg/dL (7-18); Bilirubin, Total 0.57 mg/dL (0.2-1.0); CO2 24.5 mmol/L (21.0-32.0); CREATININE 1.1 mg/dL (0.70-1.30); Chloride 104 mmol/L (98-107); Estimated GFR 67.44 (mL/min/1.73m2); Glucose 105 mg/dL (74-106); LDL CHOLESTEROL 81 mg/dL (<100); Potassium 3.6 mmol/L (3.5-5.1); Sodium 138 mmol/L (136-145); Total Protein 6.7 g/dL (6.4-8.2)
== END 2024-01-24 13:41 | disposition home or self-care (01) ==
LOC: NCHCN 13:40
PROVIDERS: PCP Physician Assistant Medical; Visit Provider Physician Assistant
DX: E78.5 Hyperlipidemia, unspecified (principal)
CPT/HCPCS: 80053; 83721; 85025

== ENCOUNTER 2024-02-07 14:50 | Outpatient (REF) | payer MEDICARE, SELFPAY ==
[2024-02-08 19:27] LABS: PSA, Screening 2.8 ng/mL (<=6.5)
== END 2024-02-07 14:51 | disposition home or self-care (01) ==
LOC: NCHCN 14:50
PROVIDERS: PCP Physician Assistant Medical; Visit Provider Physician Assistant
DX: Z80.42 Family history of malignant neoplasm of prostate (principal); Z13.6 Encounter for screening for cardiovascular disorders
CPT/HCPCS: 84153

== ENCOUNTER 2024-07-12 13:08 | Outpatient (REF) | payer MEDICARE, SELFPAY ==
[2024-07-12 19:37] LABS: Abs Immature Grans 0.01 10^3/uL (0.0-0.06); Absolute Basophil Count 0.03 10^3/uL (0.0-0.2); Absolute Eosinophil Count 0.21 10^3/uL (0.0-0.7); Absolute Lymphocyte Count 1.23 10^3/uL (1.2-3.4); Absolute Monocyte Count 0.54 10^3/uL (0.1-0.8); Absolute Neutrophil Count 2.65 10^3/uL (1.2-6.7); Basophils % 0.6 %; Eosinophils % 4.5 %; HCT 43.6 % (40.0-50.0); HGB 15.2 g/dL (13.5-17.5); Immature Grans % 0.2 %; Lymphocytes % 26.3 %; MCH 29.9 pg (27.0-33.0); MCHC 34.9 % (32.0-36.0); MCV 86 fL (80-95); MPV 10.4 fL (8.0-11.0); Monocytes % 11.6 %; Neutrophils % 56.8 %; Platelet Count 175 10^3/uL (130-400); RBC 5.08 10^6/uL (4.36-5.78); RDW 14.5 % (11.8-14.1); RDW-SD 45.2 fL; WBC 4.67 10^3/uL (4.4-10.8)
[2024-07-12 19:57] LABS: ALT 27 U/L (16-63); AST 23 U/L (15-37); Albumin 3.9 g/dL (3.4-5.0); Alkaline Phosphatase 133 U/L (46-116); Anion Gap 9.9 mmol/L (3-11); BUN 24 mg/dL (7-18); Bilirubin, Total 0.6 mg/dL (0.2-1.0); CO2 26.1 mmol/L (21.0-32.0); CREATININE 1.2 mg/dL (0.70-1.30); Calcium 9.2 mg/dL (8.5-10.1); Chloride 106 mmol/L (98-107); Estimated GFR 60.38 (mL/min/1.73m2); Glucose 111 mg/dL (74-106); Potassium 4.1 mmol/L (3.5-5.1); Sodium 142 mmol/L (136-145); Total Protein 6.9 g/dL (6.4-8.2)
== END 2024-07-12 13:09 | disposition home or self-care (01) ==
LOC: NCHCN 13:08
PROVIDERS: PCP Physician Assistant Medical; Visit Provider Physician Assistant
DX: Z01.818 Encounter for other preprocedural examination (principal)
CPT/HCPCS: 80053; 85025

== ENCOUNTER 2025-02-07 14:41 | Outpatient (REF) | payer MEDICARE, SELFPAY ==
[2025-02-07 20:05] LABS: Polynuclear Cells 7 %
[2025-02-07 20:27] LABS: Source Synovial
[2025-02-07 21:39] LABS: Source Synovial
== END 2025-02-07 14:42 | disposition home or self-care (01) ==
LOC: NCHCN 14:41
PROVIDERS: PCP Physician Assistant Medical; Visit Provider Physician Assistant
DX: M25.461 Effusion, right knee (principal)
CPT/HCPCS: 87070; 87106; 87205; 89051; 89060